=== PATIENT | female | born 1955 | race Caucasian/White ===

== ENCOUNTER 2017-03-13 02:10 | Emergency (ER) | payer BC ==
[2017-03-13 02:45] LABS: BASO % 0.6 % (0-6); EOS % 4.2 % (0-6); GRAN % 52.5 % (47-80); HEMATOCRIT 45.7 % (35.0-47.0); HEMOGLOBIN 15.1 gm/dl (11.6-16.0); LYMPH % 32.4 % (16-45); MEAN CELL VOLUME 88.4 fl (81-97); MEAN CORPUSCULAR HEMOGLOBIN 29.2 pg (27-33); MEAN PLATELET VOLUME 10.4 fl (7.4-10.4); MONO % 10.3 % (0-9); PLATELET COUNT 215 K/uL (130-400); RED BLOOD COUNT 5.17 M/uL (3.80-5.40); RED CELL DISTRIBUTION WIDTH 14.5 % (11.5-14.5); WHITE BLOOD COUNT W/O DIFF 9.3 K/uL (4.2-12.2)
--- NOTE | 2017-03-13 02:51 | Emergency Department Record ---
History of Present Illness - General Chief complaint: Nosebleed/epistaxis Stated complaint: BLOODY NOSE Time Seen by Provider: 03/13/17 02:24 Source: Patient Mode of Arrival: Ambulatory Limitations: No limitations - History of Present Illness Initial comments: The patient is here due to a nosebleed for the last 40 minutes. She has had 4 nosebleeds over the last 2 days. The patient denies any recent illnesses, trauma , injury or hx of nosebleeds. MD complaint: Epistaxis Onset/Timin -: Minutes(s) Severity: Mild Consistency: Intermittent Improves with: None Worsens with: None - Related Data Allergies Allergy/AdvReac Type Severity Reaction Status Date / Time No Known Drug Allergies Allergy Verified 03/13/17 02:18 Travel Screening - Travel/Exposure Within Last 30 Days Have you traveled within the last 30 days?: No - Travel/Exposure Within Last Year Have you traveled outside the [place] in the last year?: No - Additonal Travel Details Have you been exposed to anyone with a communicable illness?: No - Travel Symptoms Symptom Screening: None Review of Systems Constitutional: Denies: Chills, Fever Eyes: Denies: Eye discharge ENT: Denies: Congestion Respiratory: Denies: Cough Cardiovascular: Denies: Chest pain Past Medical History - SOCIAL HISTORY Smoking Status: Never smoker Alcohol Use: Occasional, Heavy Drug Use: None - RESPIRATORY Hx Respiratory Disorders: No - CARDIOVASCULAR Hx Cardio Disorders: No - NEURO Hx Neuro Disorders: No - GI Hx GI Disorders: No - Hx Genitourinary Disorders: No - ENDOCRINE Hx Endocrine Disorders: No - MUSCULOSKELETAL Hx Musculoskeletal Disorders: No - PSYCH Hx Psych Problems: No - HEMATOLOGY/ONCOLOGY Hx Hematology/Oncology Disorders: No Family Medical History Any Significant Family History?: No Physical Exam - General General Appearance: Alert, Oriented x3, Cooperative, No acute distress - Head Head exam: Normal inspection - ENT ENT exam: Normal orophraynx. negative: Normal exam Nasal Exam: Active bleeding, Other. negative: Normal inspection Throat exam: Normal inspection. negative: Tonsillar erythema, Tonsillar exudate - Neck Neck exam: Normal inspection, Full ROM. negative: Tenderness - Respiratory Respiratory exam: Normal lung sounds bilaterally. negative: Respiratory distress Course Vital Signs 03/13/17 03/13/17 02:23 02:35 Pulse Rate [ 85 79 Pulse Ox Probe] Respiratory 24 20 Rate Blood Pressure 177/124 177/99 [Left Arm] Pulse Ox 97 95 - Reevaluation(s) Reevaluation #1: Procedure note: The patient's R nares was prepped with Afrin and TLE. A probable bleeding source was identified over the R medial anterior septal wall and silver nitrate was used to cauterize the area with good results. 03/13/17 02:50 Reevaluation #2: The patient is doing better at this time. She has had no further bleeding. 03/13/17 03:07 Reevaluation #3: The patient is doing well at this time. She has had no further bleeding for just about an hour and would like to go home. 03/13/17 03:17 Medical Decision Making - Lab Data Result diagrams: 03/13/17 02:38 03/13/17 02:38 Lab Results 03/13/17 Range/Units 02:38 WBC 9.3 (4.2-12.2) K/uL RBC 5.17 (3.80-5.40) M/uL Hgb 15.1 (11.6-16.0) gm/dl Hct 45.7 (35.0-47.0) % MCV 88.4 (81-97) fl MCH 29.2 (27-33) pg MCHC 33.0 (32-36) g/dl RDW 14.5 (11.5-14.5) % Plt Count 215 (130-400) K/uL MPV 10.4 (7.4-10.4) fl Gran % 52.5 (47-80) % Lymphocytes % 32.4 (16-45) % Monocytes % 10.3 H (0-9) % Eosinophils % 4.2 (0-6) % Basophils % 0.6 (0-6) % Disposition Disposition: Discharge Clinical Impression: Epistaxis Disposition: Home, Self-Care Condition: (1) Good Instructions: Nosebleed (ED) Additional Instructions: Please use [place] Nasal spray in the R nares twice a day for 3 days. Please see your PCP for recheck in 1-2 weeks and to have your blood pressure rechecked. Return to the ER for any problems. Forms: Patient Portal Access Time of Disposition: 03:18 Quality - Quality Measures Quality Measures: N/A - Blood Pressure Screening View Details: Yes Does Patient Have Any of the Following: No Blood Pressure Classification: Hypertensive Reading Systolic Measurement: 177 Diastolic Measurement: 99 Screening for High Blood Pressure: < First Hypertensive BP, F/U Documented > [ [id number]] First Hypertensive Follow-up Interventions: Referral to alternative/primary care provider.
[2017-03-13] MEDS: OXYMETAZOLINE HCL 15 ML BTL NASAL ONE (03:27)
[2017-03-13] MEDS: TOPICAL LIDOCAINE W/ EPI 5 ML TOP ONE (03:27)
== END 2017-03-13 03:28 | disposition home or self-care (01) ==
LOC: ER 02:10
DX: R04.0 Epistaxis (principal)
CPT/HCPCS: 30901; 80048; 85025; 99283